=== PATIENT | female | born 1960 | race Caucasian/White ===

== ENCOUNTER 2019-05-04 08:14 | Observation (INO) ==
[2019-05-04] MEDS ORDERED: NS 1,000 ML IV ONE ×3 (09:19→09:21)
--- NOTE | 2019-05-04 09:53 | Diag Imaging Result Doc PS360 ---
EXAM: CHEST-2 VIEWS HISTORY: SOB TECHNIQUE: Two views COMPARISON: 04/28/2019 FINDINGS: The lungs are hyperexpanded. The heart is not enlarged. The vessels are not distended. There are mild increased markings in the left lung base. No pleural effusions. IMPRESSION: Persistent infiltrates or atelectasis in the lower left lung. There is also likely emphysema. Electronically signed by Low Licona 05/04/2019 9:50 AM
[2019-05-04 09:58] LABS: INR 0.87; PROTIME 12.3 Seconds (11.0-16.0)
[2019-05-04 09:59] LABS: PTT 29.5 Seconds (22.3-41.8)
[2019-05-04 10:16] LABS: ALBUMIN 3.9 g/dL (3.5-5.0); CALCIUM 9.4 mg/dL (8.8-10.2); CREATININE 1.1 mg/dL (0.5-0.9); POTASSIUM 4.1 mmol/L (3.5-5.1); TOTAL BILIRUBIN 0.4 mg/dL (0.20-1.00); TOTAL PROTEIN 6.6 g/dL (6.3-8.3)
[2019-05-04 10:22] LABS: BASO# 0.04 X1000 (0.0-0.2); BASO% 0.4 % (0.0-0.8); EOS# 0.15 X1000 (0.0-0.7); EOS% 1.4 % (0.0-10.0); HEMATOCRIT 39.7 % (37.0-47.0); HEMOGLOBIN 13.4 g/dL (12.0-16.0); IMM GRAN# 0.07 X1000 (0.0-0.04); IMM GRAN% 0.7 % (0.0-0.5); LYMPH# 1.26 X1000 (1.2-3.4); LYMPH% 12.1 % (20.5-51.1); MCHC 33.8 g/dL (33-37); MCV 103.7 FL (81-99); MONO% 9.6 % (1.7-9.3); MPV 10.1 FL (7.4-10.4); NEUT# 7.93 X1000 (1.4-6.5); NEUT% 75.8 % (42.2-75.2); PLT 258 X1000 (130-400); RBC 3.83 XMIL (4.2-5.4); RDW 12.8 % (11.5-14.5); WBC 10.45 X1000 (4.8-10.8)
[2019-05-04 10:29] LABS: URINE SOURCE CLEAN CATCH
[2019-05-04 10:33] LABS: BILIRUBIN URINE NEGATIVE (NEGATIVE); BLOOD URINE NEGATIVE (NEGATIVE); COLOR YELLOW; GLUCOSE URINE NEGATIVE (NEGATIVE); KETONE URINE NEGATIVE (NEGATIVE); LEUKOCYTES URINE NEGATIVE (NEGATIVE); NITRITE URINE NEGATIVE (NEGATIVE); PROTEIN URINE NEGATIVE (NEGATIVE); TURBIDITY URINE CLEAR (CLEAR); UROBILINOGEN URINE NORMAL (NORMAL)
[2019-05-04 10:42] LABS: UR EPITHELIAL CELLS <10 /HPF (<10); URINE BACTERIA 1+ /HPF; URINE CASTS NONE SEEN; URINE CRYSTALS NONE SEEN; URINE RBC <10 /HPF (<10); URINE SMALL ROUND CELLS NONE SEEN; URINE WBC <10 /HPF (<10); URINE YEAST NONE SEEN
[2019-05-04] MEDS ORDERED: TYLENOL PO PRN (12:53)
[2019-05-04] MEDS ORDERED: ZOFRAN IV PRN (12:53)
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
[2019-05-04] MEDS: ZOSYN 3.375 GM in NS 50 ML IV SCH ×2 (13:35→19:52)
[2019-05-04] MEDS: NS 1,000 ML IV SCH (14:48)
[2019-05-04] MEDS ORDERED: PNEUMOVAX 23 IM ONE (16:42)
[2019-05-04] MEDS ORDERED: FLU VACCINE IM ONE (16:42)
[2019-05-04] MEDS: NORCO-7.5 PO PRN (19:51)
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
[2019-05-05] MEDS: NS 1,000 ML IV SCH (02:58)
[2019-05-05] MEDS: ZOSYN 3.375 GM in NS 50 ML IV SCH ×5 (02:58→19:43)
[2019-05-05] MEDS: NORCO-7.5 PO PRN ×2 (04:59→20:16)
[2019-05-05 06:26] LABS: HEMATOCRIT 34.5 % (37.0-47.0); HEMOGLOBIN 11.3 g/dL (12.0-16.0); MCH 34.7 PG (27-31); MCHC 32.8 g/dL (33-37); MCV 105.8 FL (81-99); MPV 10.1 FL (7.4-10.4); RBC 3.26 XMIL (4.2-5.4); RDW 12.9 % (11.5-14.5); WBC 6.92 X1000 (4.8-10.8)
[2019-05-05 06:33] LABS: AGAP 13; ALBUMIN 3.1 g/dL (3.5-5.0); ALKALINE PHOSPHATASE 99 U/L (32-104); BUN 13 mg/dL (8-22); CALCIUM 8.5 mg/dL (8.8-10.2); CHLORIDE 100 mmol/L (98-107); COSMO 270; CREATININE 0.9 mg/dL (0.5-0.9); ESTIMATED GFR > 60; GLUCOSE 86 mg/dL (70-104); GOT 23 U/L (10-30); GPT 25 U/L (10-36); MAGNESIUM 2.7 mg/dL (1.5-2.7); POTASSIUM 3.8 mmol/L (3.5-5.1); SODIUM 135 mmol/L (136-145); TCO2 22 mmol/L (25-35); TOTAL PROTEIN 5.7 g/dL (6.3-8.3)
[2019-05-05] MEDS: DUONEB (A & A) INH SCH ×3 (08:06→14:39)
[2019-05-05] MEDS: ZITHROMAX PO SCH (08:07)
[2019-05-05] MEDS ORDERED: VENTOLIN HFA INH PRN (09:22)
[2019-05-05] MEDS ORDERED: ATARAX PO PRN (09:22)
[2019-05-05] MEDS ORDERED: COZAAR PO ONE (09:23)
[2019-05-05] MEDS: SOLU-MEDROL IV SCH ×2 (10:07→19:18)
[2019-05-05] MEDS: PRILOSEC PO SCH (10:08)
[2019-05-05] MEDS: CELEXA PO SCH (10:08)
[2019-05-05] MEDS: MOBIC PO SCH (10:08)
[2019-05-05] MEDS: XOPENEX NEB INH PRN (19:39)
--- NOTE | 2019-05-06 01:20 | PROGRESS NOTE ---
DATE: 05/05/2019 SUBJECTIVE: Patient notes that she is feeling a little bit better, is having less coughing, less congestion, less shortness of breath although still present. PHYSICAL EXAMINATION: Vital Signs: Temperature 97 degrees, pulse 89, respiratory 18, BP 141/87. General: Patient is pleasant, currently in minimal respiratory distress. HEENT: Normocephalic. Neck: Supple. Cardiovascular: Regular rate. Chest: Relatively clear. No wheezing. No crackles. Abdomen: Soft, nondistended. Extremities: Moves all extremities. ASSESSMENT: 1. Persistent infiltrate, left lower lobe. 2. Orthostatic hypotension, resolved. 3. Rib fractures. 4. Sternal fractures. 5. Chronic tobacco abuse. 6. Emphysema. 7. Hyponatremia. PLAN: We are going to continue patient in the hospital. Continue Zosyn and azithromycin, IV fluids, antibiotics, breathing treatments, and we will follow. Hopefully home over the next 1 or 2 days. cc: Mark Miles MD
[2019-05-06] MEDS: SOLU-MEDROL IV SCH ×3 (02:25→09:10)
[2019-05-06] MEDS: ZOSYN 3.375 GM in NS 50 ML IV SCH ×2 (02:25→08:11)
[2019-05-06] MEDS: XOPENEX NEB INH PRN ×2 (03:57→08:41)
[2019-05-06] MEDS: NORCO-7.5 PO PRN (06:48)
[2019-05-06] MEDS: PRILOSEC PO SCH (06:48)
[2019-05-06] MEDS: ZITHROMAX PO SCH (08:10)
[2019-05-06] MEDS: MOBIC PO SCH (08:10)
[2019-05-06] MEDS: CELEXA PO SCH (08:11)
[2019-05-06 11:09] VITALS: BP 158/85
--- NOTE | 2019-05-06 21:06 | DISCHARGE SUMMARY ---
ADMISSION DATE: 05/04/2019 DISCHARGE DATE: 05/06/2019 DISCHARGE DIAGNOSES: 1. Left lower lobe pneumonia, improved. 2. Hypoxic respiratory failure, resolved. 3. Left-sided rib fractures. 4. Sternal fractures. 5. Chronic tobacco abuse. 6. Chronic obstructive pulmonary disease with exacerbation. 7. Orthostatic hypotension, resolved. CONSULTATIONS: None. PROCEDURES: None. BRIEF HOSPITAL COURSE: Patient is a 58-year-old female who presented to the hospital with increased cough, congestion, shortness of breath, diagnosed with pneumonia, COPD exacerbation, placed on antibiotics, oxygen, and breathing treatments. Her blood pressures were low initially and got much better at 140/87 on discharge. She will be discharged home with [place] for pain, Robitussin, azithromycin, Omnicef and Medrol Dosepak. TIME SPENT: Greater than 30 minutes was spent in total care. No other changes made on her chronic home medications diet or activity. cc: Mark Miles MD
== END 2019-05-06 13:55 | disposition home or self-care (01) ==
LOC: P.ED 08:14 → P.MEDSURG 08:14 → SUATTDRO 08:25
PROVIDERS: ATTEND Family Medicine